=== PATIENT | female | born 1965 | race Caucasian/White ===

== ENCOUNTER 2022-04-02 06:00 | Day surgery (SDC) | payer OTHER ==
[~2022-04-02] VITALS: Ht 172.7 cm; Wt 80.9 kg
[~2022-04-02 06:00] MED LIST: ALBIPROI; ALPR.25 PO; ALPR1 PO; AMOCLA875 PO; BUDE6HFA INH; BUPR150ER; BUPR150ER PO; Budeprion Xl300 MG PO; ESTRADIOL PO; FLUSAL2505; Flonase 0.05% N16 GM; HYDACE10B PO; HYDACE5 PO; LACT10SY PO; Mobic15 MG PO; NAPR500 PO; NSAIDS; ONDA4ODT MM; ONDA8 PO; OSEL75CA PO; OXYACE5T PO; PHENA200 PO; PROGESTERONE100 MG PO; PROM25 PO; RXHYDACE PO; SYMBICORT; VENL150ER PO; VENL75ER PO; [UNRECOGNIZED DRUG - OTHER] INH
--- NOTE | 2022-04-02 06:47 | NUR ---
PT AMBULATES TO ROOM C STEADY. History, Chart, Medications and Allergies reviewed before start of procedure. Lungs clear T/O to Auscultation. Patient confirms NPO status and agrees with scheduled surgery. Patient reports completing Chlorhexadine shower X2 prior to admission to hospital. + VOID.
--- NOTE | 2022-04-02 09:21 | NUR ---
04/02/22 0921 Nevin Miguel PATIENT RECEIVED 1GM OF VANCO IN DAY SURGERY AT 0705 PRIOR TO ARRIVING IN THE OR.
--- NOTE | 2022-04-02 19:37 | NUR ---
SHIFT SUMMARY PATIENT NEW ADMIT POST OP RIGHT TKA. ALERT AND ORIENTED THROUGHOUT SHIFT. TOLERATING REGULAR DIET AND LIQUIDS. PAIN CONTROLLED WITH PO PAIN MEDS. RIGHT KNEE WITH AQUACEL, JUSTINE, COMPRESSION STOCKING, SCDS. SBA TO AMBULATED WITH FWW AND GAIT BELT. WORKED WITH PHYSICAL THERAPY. VOIDING WELL. REPORT GIVEN TO DIRECTOR CONSTRUCTION SERVICES RN.
[2022-04-03 05:06] LABS: BASOPHILS ABSOLUTE AUTO 0.03 K/mm3 (0.00-0.23); BASOPHILS PERCENT AUTO 0 % (0-2); EOSINOPHILS ABSOLUTE AUTO 0.03 K/mm3 (0.00-0.68); EOSINOPHILS PERCENT AUTO 0 % (0-6); Hematocrit 32.7 % (33.0-51.0); Hemoglobin 11.2 g/dL (11.5-16.0); IMMATURE GRAN ABSOLUTE AUTO 0.02 K/mm3 (0.00-0.10); IMMATURE GRAN PERCENT AUTO 0 % (0-1); LYMPHOCYTES ABSOLUTE AUTO 2.44 K/mm3 (0.84-5.20); LYMPHOCYTES PERCENT AUTO 28 % (21-46); MONOCYTES ABSOLUTE AUTO 0.78 K/mm3 (0.16-1.47); MONOCYTES PERCENT AUTO 9 % (4-13); Mean Corpuscular HGB Conc 34.3 g/dL (31.5-36.5); Mean Corpuscular Volume 93 fL (80-100); Mean Platelet Volume 10.1 fL (9.1-12.4); NEUTROPHILS ABSOLUTE AUTO 5.54 K/mm3 (1.96-9.15); NEUTROPHILS PERCENT AUTO 63 % (41-73); Platelet Count 257 K/mm3 (150-400); RDW Coefficient Variation 13.3 % (11.7-14.2); RDW Standard Deviation 45.4 fL (35.1-46.3); White Blood Cell Count 8.84 K/mm3 (4.00-11.30)
[2022-04-03 05:30] LABS: Bun/Creatinine Ratio 16.7 (12.0-20.0); Calcium, Blood 8.3 mg/dL (8.5-10.1); Creatinine, Blood 0.78 mg/dL (0.40-1.00); Magnesium, Blood 2.1 mg/dL (1.6-2.4); Potassium, Blood 4.3 mmol/L (3.5-5.5)
--- NOTE | 2022-04-03 07:06 | NUR ---
[employer] SUMMARY PT A&O X4 AND COOPERATIVE. VSS. INCISION COVERED WITH JUSTINE BANDAGE C/D/I. PT AMBULATED WITH ASSISTANCE TO BATHROOM TO VOID EARLY IN THE SHIFT. PT REPORTED NAUSEA AT BEGINNING OF SHIFT. SHE WAS MEDICATED WITH REGALAN. PN CONTROLED WITH SCHEDULED TYLENOL/TORADOL AND PRN OXYCODONE. PT SLEPT FOR MUCH OF SHIFT. NO OTHER ACUTE CHANGES THIS SHIFT.
[2022-04-03] MEDS ORDERED: Flonase 0.05% N16 GM (07:25)
[2022-04-03] MEDS ORDERED: ASPI81CH PO (07:26)
[2022-04-03] MEDS ORDERED: ROXICODONE5 MG PO (07:32)
[2022-04-03] MEDS ORDERED: PROM25 PO (07:34)
--- NOTE | 2022-04-03 10:06 | NUR ---
DISCHARGE PT DISCHARGED WITH FAMILY VIA CAR. PATIENT/FAMILY IN AGREEMENT WITH DISCHARGE PLAN. PT VOIDING AND AMBULATING WITH FWW. EXTRA DRESSINGS SUPPLIED WITH DISCHARGE PAPERWORK. FAXED NEW PERSCRIPTIONS TO [employer].
== END 2022-04-03 10:00 | disposition home or self-care (01) ==
LOC: ORSCMMR 06:00 → ORD 07:30 → SURS 11:02 → ORSCMMR 04-03 10:00
PROVIDERS: Orthopaedic Surgery
PROC: 8E0YXBZ Computer Assisted Procedure of Lower Extremity (ICD-10-PCS; principal; 2022-04-02 07:30)
PROC: 0SRC0J9 Replacement of Right Knee Joint with Synthetic Substitute, Cemented, Open Approach (ICD-10-PCS; principal; 2022-04-02 07:30)
DX: M17.0 Bilateral primary osteoarthritis of knee (principal); J45.909 Unspecified asthma, uncomplicated; Z79.899 Other long term (current) drug therapy
CPT/HCPCS: 36415; 73560-RT; 80048; 83735; 85025; 94760; 97110; 97116; 97162; 97530; A9270; C1713; C1776; J0171; J0690; J0735; J1100; J1885; J2250; J2405; J2704; J2765; J2795; J3010; J3370; J7050; J7060; J7120; Q5103

== ENCOUNTER 2024-08-01 07:48 | Day surgery (SDC) | payer OTHER ==
[~2024-08-01] VITALS: Ht 172.7 cm; Wt 81.1 kg
[2024-08-01] VITALS (15 sets, daily range): BP systolic 90–111; BP diastolic 37–74
[~2024-08-01 07:48] MED LIST changes: +ASPI81CH PO; +Acetaminophen 500 MG Tab PO SCH; +CLOT10 MT; +CeFAZolin Sodium 2,000 MG in NS 100 ML IV SCH; +Chlorhexidine Mouth Care 15 ML UDC MT SCH; +Lactated Ringer's 1,000 ML IV SCH; +MELO7.5 PO; +OxyCODONE HCL 10 MG TABCR PO SCH; +ROXICODONE5 MG PO; +Ropivacaine 0.5% HCl/Pf 123.125 MG,EPINEPHrine HCL 0.25 MG,Ketorolac Tromethamine 15 MG... INFIL SCH; +Tranexamic Acid 100 ML IV SCH; +[UNRECOGNIZED DRUG - REMARK] PO
[2024-08-01] MEDS ORDERED: CeFAZolin Sodium 2,000 MG VIAL ONE (08:20)
[2024-08-01] MEDS ORDERED: propofoL 60 ML IV ONE (08:39)
[2024-08-01] MEDS ORDERED: FentaNYL Citrate 50 MCG/ML 2 ML Injection ONE (08:39)
[2024-08-01] MEDS ORDERED: Midazolam HCl 1MG / ML 2ML Vial IV PRN (08:40)
[2024-08-01] MEDS ORDERED: Lidocaine HCl 1% 5 ML SYR INJ ONE (08:45)
[2024-08-01] MEDS ORDERED: Phenylephrine HCl 100 MCG/ML-NS 10MLSYR (1MG/10ML) ONE (08:56)
--- NOTE | 2024-08-01 09:37 | NUR ---
PRE-OP NOTE PT A&OX4, BREATHING RA, VSS, NO COMPLAINTS. Ambulatory in Day Surgery Patient confirms NPO status and agrees with scheduled surgery. Pre-Op teaching done. Pt verbalizes understanding. PURSE WITH BETY, REMAINING BELONGINGS IN PT BELONGINGS BAG BELOW STRETCHER.
[2024-08-01] MEDS ORDERED: DiphenhydrAMINE HCL 25 MG Cap PO PRN (09:40)
[2024-08-01] MEDS ORDERED: Bisacodyl 10 MG Supp PR PRN (09:40)
[2024-08-01] MEDS ORDERED: FLU VACC TS2024-25(6MOS UP)/PF 45 MCG/0.5 ML SYRINGE IM SCH (09:45)
[2024-08-01] MEDS ORDERED: Lactated Ringer's 1,000 ML IV SCH (09:45)
[2024-08-01] MEDS ORDERED: Ondansetron HCl 2 MG / ML 2ML Vial IV PRN (09:45)
[2024-08-01] MEDS ORDERED: Magnesium Hydroxide Conc 10 ML UDC PO PRN (09:45)
[2024-08-01] MEDS ORDERED: HYDROmorphone HCl/Pf 1MG SYR IV PRN (09:45)
[2024-08-01] MEDS ORDERED: OxyCODONE HCL 5 MG TAB PO PRN ×2 (09:50)
[2024-08-01] MEDS ORDERED: Promethazine HCl 25 MG Tab PO PRN (09:50)
[2024-08-01] MEDS ORDERED: Metoclopramide HCl 5MG / ML 2ML Vial IV PRN (09:50)
--- NOTE | 2024-08-01 10:14 | NUR ---
08/01/24 1014 Buck,Bonita SPINAL BLOCK COMPLETED BY UPON ENTRY TO OR. PATIENT TOLERATED WELL.
[2024-08-01] MEDS ORDERED: propofoL 20 ML IV ONE (10:57)
[2024-08-01] MEDS ORDERED: Ketorolac Tromethamine 15mg Vial IV SCH (12:00)
[2024-08-01] MEDS ORDERED: Ketorolac Tromethamine 30mg Vial ONE (12:01)
[2024-08-01] MEDS ORDERED: Acetaminophen 500 MG Tab PO SCH (16:00)
[2024-08-01] MEDS ORDERED: CeFAZolin Sodium 2,000 MG in NS 100 ML IV SCH (17:00)
--- NOTE | 2024-08-01 19:36 | NUR ---
SHIFT SUMMARY UNFORTUNATLY, WASN'T ABLE TO WORK w/ THERAPY DUE TO LINGERING SPINAL. HAS BEEN STRUGGLING w/ NAUSEA w/ EMESIS x 1. AFTER SPINAL WORE OFF, GOT UP TO USE BATHROOM & UP TO CHAIR. PAIN REASONABLY MANAGED, REPORTS 5/10 IS TOLERABLE.
[2024-08-01] MEDS ORDERED: Docusate Sodium 100 MG Cap PO SCH (21:00)
[2024-08-02 00:20] VITALS: BP 100/60
[2024-08-02 04:04] VITALS: BP 88/57
[2024-08-02 05:12] LABS: BASOPHILS ABSOLUTE AUTO 0.04 K/mm3 (0.00-0.23); BASOPHILS PERCENT AUTO 1 % (0-2); EOSINOPHILS ABSOLUTE AUTO 0.15 K/mm3 (0.00-0.68); EOSINOPHILS PERCENT AUTO 2 % (0-6); Hematocrit 35.3 % (33.0-51.0); Hemoglobin 11.8 g/dL (11.5-16.0); IMMATURE GRAN ABSOLUTE AUTO 0.01 K/mm3 (0.00-0.10); IMMATURE GRAN PERCENT AUTO 0 % (0-1); LYMPHOCYTES ABSOLUTE AUTO 3.06 K/mm3 (0.84-5.20); LYMPHOCYTES PERCENT AUTO 42 % (21-46); MONOCYTES ABSOLUTE AUTO 0.78 K/mm3 (0.16-1.47); MONOCYTES PERCENT AUTO 11 % (4-13); Mean Corpuscular HGB Conc 33.4 g/dL (31.5-36.5); Mean Corpuscular Volume 96 fL (80-100); Mean Platelet Volume 10.5 fL (9.1-12.4); NEUTROPHILS ABSOLUTE AUTO 3.17 K/mm3 (1.96-9.15); NEUTROPHILS PERCENT AUTO 44 % (41-73); Platelet Count 253 K/mm3 (150-400); RDW Coefficient Variation 12.9 % (11.7-14.2); RDW Standard Deviation 45.8 fL (35.1-46.3); Red Blood Cell Count 3.69 M/mm3 (3.80-5.20); White Blood Cell Count 7.21 K/mm3 (4.00-11.30)
[2024-08-02 06:06] LABS: Bun/Creatinine Ratio 15.5 (12.0-20.0); Calcium, Blood 8.1 mg/dL (8.5-10.1); Creatinine, Blood 0.9 mg/dL (0.40-1.00); Magnesium, Blood 1.9 mg/dL (1.6-2.4); Potassium, Blood 4.4 mmol/L (3.5-5.5)
[2024-08-02 07:35] VITALS: BP 103/59
--- NOTE | 2024-08-02 07:35 | NUR ---
SHIFT SUMMARY POD 1 L TKA. NO ACUTE CHANGES OVERNIGHT. VSS, BASELINE POLO. TOLERATING MIN PO INTKAKE R/T NAUSEA, MEDICATED PER EMAR. VOIDING. AMBULATES USING FWW c SBA. RESTING IN CHAIR c POLAR PACK. PT REPORTS PAIN TOLERABLE WHEN USING BOTH IV & ORAL PAIN MEDICATION. AQUACEL C/D/I. ANTICIPATED TO WORK WITH PHYSCIAL THERAPY TODAY THEN DISCHARGE HOME. CALL LIGHT IN REACH, REPORT GIVEN TO KARISHMA TANG.
[2024-08-02] MEDS ORDERED: ACET500 PO (08:07)
[2024-08-02] MEDS ORDERED: OXYC5 PO (08:08)
[2024-08-02] MEDS ORDERED: ASPI81CH PO (08:08)
[2024-08-02] MEDS ORDERED: Aspirin 81 MG Chew PO SCH (09:00)
[2024-08-02 15:41] VITALS: BP 130/67
--- NOTE | 2024-08-02 15:52 | NUR ---
DISCHARGE POD 1 LTKA PT AMBUALTED WELL WITH THERAPY THIS AFTERNOON. ALL PRESCRIPTIONS PRIOR PICKED UP AT THIS TIME. ALL INSTRUCTIONS GONE OVER WITH PATIENT. NO FURTHER QUESTIONS. TACHYCARDIC WITH THERAPY THIS MORNING, DIAPHORETIC. SAT IN CHAIR AND IVF STARTED. NO FURTHER ISSUES DURIING SHIFT. AMBULATED WITHOUT SIGNIFICANT INCREASE IN HR OR SWEATING THIS AFTERNOON.
== END 2024-08-02 16:17 | disposition home or self-care (01) ==
LOC: ORSCMMR 07:48 → ORD 09:30 → ORSCMMR 10:05 → ORD 10:15 → SURS 12:22 → ORSCMMR 08-02 16:17
PROVIDERS: Orthopaedic Surgery
PROC: 0SRD0JA Replacement of Left Knee Joint with Synthetic Substitute, Uncemented, Open Approach (ICD-10-PCS; principal; 2024-08-01 10:05)
DX: M17.12 Unilateral primary osteoarthritis, left knee (principal); J45.909 Unspecified asthma, uncomplicated; Z96.651 Presence of right artificial knee joint; Z79.899 Other long term (current) drug therapy
CPT/HCPCS: 36415; 73560-LT; 80048; 82947; 83735; 85025; 97110; 97116; 97162; 97530; A9270; C1713; C1776; J0171; J0690; J0735; J1170; J1885; J2250; J2371; J2405; J2704; J2765; J2795; J3010; J7120